=== PATIENT | male | born 1950 | race Two or more races ===

== ENCOUNTER → 2024-08-15 | Outpatient (CLI) | payer MEDICARE, MEDICAID, SELFPAY ==
[2024-08-15 10:50] LABS: Prostate Specific Antigen < 0.10 ng/mL (0-4.00)
== END | disposition home or self-care (01) ==
LOC: COPL 09:39
PROVIDERS: PCP Physician Assistant; Referring Provider Urology; Visit Provider Urology
DX: C61 Malignant neoplasm of prostate (principal)
CPT/HCPCS: 36415; 84153

== ENCOUNTER → 2024-08-30 | Outpatient (BNVA) | payer MEDICARE, MEDICAID, SELFPAY | END | disposition home or self-care (01) | PROVIDERS: PCP Physician Assistant; Referring Provider Physician Assistant; Visit Provider Urology | DX: C61 Malignant neoplasm of prostate (principal); N39.3 Stress incontinence (female) (male); N52.9 Male erectile dysfunction, unspecified; E11.9 Type 2 diabetes mellitus without complications; Z80.42 Family history of malignant neoplasm of prostate | CPT/HCPCS: 81003; 99212; G0463 ==

== ENCOUNTER → 2025-04-14 | Outpatient (CLI) | payer MEDICARE, MEDICAID, SELFPAY ==
[2025-04-14 09:47] LABS: Prostate Specific Antigen < 0.10 ng/mL (0-4.00)
== END | disposition home or self-care (01) ==
LOC: COPL 08:19
PROVIDERS: PCP Physician Assistant; Referring Provider Urology; Visit Provider Urology
DX: C61 Malignant neoplasm of prostate (principal)
CPT/HCPCS: 36415; 84153

== ENCOUNTER → 2025-04-22 | Outpatient (BNVA) | payer MEDICARE, MEDICAID, SELFPAY | END | disposition home or self-care (01) | PROVIDERS: PCP Physician Assistant; Referring Provider Physician Assistant; Visit Provider Urology | DX: C61 Malignant neoplasm of prostate (principal); N52.9 Male erectile dysfunction, unspecified; Z90.79 Acquired absence of other genital organ(s); I10 Essential (primary) hypertension | CPT/HCPCS: 81003; 99213; G0463 ==

== ENCOUNTER → 2025-05-07 | Outpatient (BNVA) | payer MEDICARE, MEDICAID, SELFPAY | END | disposition home or self-care (01) | PROVIDERS: PCP Physician Assistant; Referring Provider Physician Assistant; Visit Provider Student in an Organized Health Care Education/Training Program | DX: N52.9 Male erectile dysfunction, unspecified (principal); N39.3 Stress incontinence (female) (male); Z90.79 Acquired absence of other genital organ(s); Z85.46 Personal history of malignant neoplasm of prostate | CPT/HCPCS: 99212; G0463 ==